=== PATIENT | male | born 1950 | race Hispanic/Latino ===

== ENCOUNTER 2024-10-25 10:37 | Emergency (ER) | payer MEDICARE ==
[~2024-10-25] VITALS: Ht 182.9 cm; Wt 93.2 kg
[2024-10-25] MEDS ORDERED: TRAZODONE HCL50 MG PO (10:49)
[2024-10-25 11:56] VITALS: TEMP 98.1
[2024-10-25 12:35] VITALS: PULSE 65; RESP 16; O2SAT 98
[2024-10-25] MEDS ORDERED: FLOMAX0.4 MG PO (12:35)
== END 2024-10-25 12:50 | disposition home or self-care (01) ==
LOC: FSED 10:40
DX: R30.0 Dysuria (principal); R33.9 Retention of urine, unspecified; N40.0 Benign prostatic hyperplasia without lower urinary tract symptoms; R03.0 Elevated blood-pressure reading, without diagnosis of hypertension; K57.90 Diverticulosis of intestine, part unspecified, without perforation or abscess without bleeding; K76.0 Fatty (change of) liver, not elsewhere classified; K76.89 Other specified diseases of liver; M51.369 Other intervertebral disc degeneration, lumbar region without mention of lumbar back pain or lower extremity pain
CPT/HCPCS: 51700; 74176; 81003; 99284